=== PATIENT | male | born 1970 | race Caucasian/White ===

== ENCOUNTER 2018-01-20 11:34 | Emergency (ER) | payer OTHER ==
[~2018-01-20] VITALS: Ht 182.9 cm; Wt 97.5 kg
--- NOTE | 2018-01-20 13:49 | ED UPPER/LOWER EXTREMITY COMPL ---
History of Present Illness General Chief Complaint: Upper Extremity Injury Stated Complaint: R ARM INJURY Source: patient Exam Limitations: no limitations Vital Signs & Intake/Output Vital Signs & Intake/Output Vital Signs Date Time Temp Pulse Resp B/P B/P Pulse O2 O2 Flow FiO2 Mean Ox Delivery Rate 01/20 1418 98.3 95 18 148/98 99 Room Air 01/20 1142 98.2 97 20 157/110 99 Room Air ED Intake and Output 01/21 0000 01/20 1200 Intake Total Output Total Balance Patient 215 lb Weight Weight Reported by Patient Measurement Method Allergies Coded Allergies: NO KNOWN ALLERGIES (12/01/14) Reconcile Medications Ibuprofen 800 MG TABLET 1 TAB PO TID PAIN Oxycodone HCl/Acetaminophen (Percocet 5-325 MG Tablet) 5 MG-325 MG TABLET 1-2 TAB PO Q6P PRN PAIN Triage Note: PT TO ED C/O RIGHT ARM PAIN SINCE 1044. PT WAS AT WORK PUTTING AN OVEN INTO A CABINET AND FELT A PULL AND POP TO RIGHT FOREARM. DECLINING MEDS IN TRIAGE. WORKERS COMP FORM FILED. Triage Nurses Notes Reviewed? yes Onset: Abrupt Duration: day(s): HPI: 47-year-old male comes into the emergency room for further evaluation of pain to his right forearm. Patient reports that he was at work lifting cabinets when he felt a pop and pull in his right forearm. He's had significant pain since then. Swelling. Pain shoots down to his wrist area. Comes in for further evaluation. Denies any numbness or tingling. (Layo Alcala) Past History Travel History Traveled to [place] past 21 day No Medical History Any Pertinent Medical History? see below for history Cardiovascular: hypertension Surgical History Surgical History: non-contributory Psychosocial History What is your primary language Albanian Tobacco Use: Current Daily Use Daily Tobacco Use Amount/Type: => 5 Cigarettes daily ETOH Use: occasional use Illicit Drug Use: denies illicit drug use Family History Hx Contributory? No (Layo Alcala) Review of Systems Review of Systems Constitutional: Reports: no symptoms. EENTM: Reports: no symptoms. Respiratory: Reports: no symptoms. Cardiovascular: Reports: no symptoms. Gastrointestinal/Abdominal: Reports: no symptoms. Genitourinary: Reports: no symptoms. Musculoskeletal: Reports: see HPI. Skin: Reports: no symptoms. Neurological/Psychological: Reports: no symptoms. Hematologic/Endocrine: Reports: no symptoms. Immunological: Reports: no symptoms. All Other Systems: Reviewed and Negative (Layo Alcala) Physical Exam Physical Exam General Appearance: well developed/nourished, mild distress Head: atraumatic Eyes: Bilateral: normal appearance. Ears, Nose, Throat: normal ENT inspection, hearing grossly normal Neck: normal inspection Cardiovascular/Respiratory: no respiratory distress Back: normal inspection Elbow Right: soft tissue tenderness over right forearm not very localized to one particular area, pain with pronation and supination, radial pulse 2+, no tenderness over elbow, biceps tendon intact, entry rep strength intact, Neurologic/Tendon: normal sensation, normal motor functions, normal tendon functions, responds to pain, no evidence tendon injury, no pulse deficit Skin: intact, normal color, warm/dry (Layo Alcala) Progress Differential Diagnosis: fracture, sprain, tendon injury, muscle tear Plan of Care: Orders Procedure Date/time Status Durable Medical Equipment 01/20 1226 Active Diagnostic Imaging: Viewed by Me: Radiology Read. Discussed w/RAD: Radiology Read. Radiology Impression: PATIENT: KHRIS VILLEGAS PRESENT AGE: 47 PATIENT ACCOUNT NO: [id number] : 69 LOCATION: [facility] ORDERING PHYSICIAN: Layo MEJIA SERVICE DATE: 01/20/18 EXAM TYPE : RAD - XRY-ELBOW 3 OR MORE VIEWS, R; XRY-FOREARM, RIGHT EXAMINATION: XR ELBOW, RIGHT XR FOREARM, RIGHT CLINICAL INFORMATION: Pain. Assess for any avulsion fracture. COMPARISON: None. TECHNIQUE: AP, left and right oblique and lateral views of the elbow were obtained. AP and lateral views of the right forearm were obtained. FINDINGS: Right elbow: There is normal alignment of the osseous structures. The soft tissues are unremarkable and no joint effusions are demonstrated. Bone mineralization is normal. There are no radiodense foreign bodies. Right forearm: There is normal alignment of the elbow and wrist joints. No fractures are demonstrated. The soft tissues are unremarkable. There are no radiodense foreign bodies. IMPRESSION: 1. There are no fractures or subluxations. 2. There are no joint effusions. DICTATED BY: Dennys Quinones MD DATE /TIME DICTATED:01/20/181339 BIOMASS FACILITATOR:RAD.[email or web address] DATE/TIME TRANSCRIBED: 01/20/18 / 1339 CONFIDENTIAL, DO NOT COPY WITHOUT APPROPRIATE AUTHORIZATION. < Electronically signed in Other Vendor System> SIGNED BY: Dennys Quinones MD [id number] (Layo Alcala) Departure Departure Disposition: HOME OR SELF CARE Condition: Stable Clinical Impression Primary Impression: Muscle tear Secondary Impressions: Soft tissue injury of right forearm Referrals: Vince GALEANO,Gila Monroe MD,Theodora Elizondo (PCP/Family) Additional Instructions: Take ibuprofen and Percocet for pain. Follow-up with orthopedic doctor provided. Return if any concerns worsening symptoms. Please go over all results of today's visit with your primary care doctor. Contact your primary care doctor to let them know you were here in the emergency room. There may be nonspecific findings which may not be related to your visit today here in the emergency room but may require further evaluation and chronic monitoring by your primary care doctor. If you had a laceration today the chance of foreign body always remains. You should follow-up with your primary care doctor for recheck in 3-5 days for a wound check. If you had an x-ray done there is a chance that a fracture could have been missed on initial read and you should follow-up with your primary care doctor for repeat x-rays if symptoms persist. If your blood pressure was elevated here in the emergency room please have rechecked by [facility] primary care doctor within the next 48. If you were prescribed a narcotic here in the emergency room or any type of controlled substances you're not allowed to drive while taking this medication or operate any type of heavy machinery. Narcotics can make you feel lightheaded dizziness nausea and can cause constipation. You may need to picker packer a stool softener. Thank you for choosing [facility] emergency room. Please return to the emergency room immediately if you have any other concerns worsening of symptoms. Departure Forms: Customer Survey General Discharge Information Industrial Accident Report Prescriptions: Current Visit Scripts Oxycodone HCl/Acetaminophen (Percocet 5-325 MG Tablet) 1-2 TAB PO Q6P PRN PAIN #15 TAB Ibuprofen 1 TAB PO TID #60 TAB Comments 01/20/2018 2:46:24 PM Patient clinically looks well. In no apparent distress. Tendon versus soft tissue injury. Patient was referred to orthopedic doctor. Patient may require MRI. High suspicion for tear. (Layo Alcala) PA/[employer]LE [employer]YR[employer]ER Co-Sign Statement Statement: ED Attending supervision documentation- I saw and evaluated the patient. I have also reviewed all the pertinent lab results and diagnostic results. I agree with the findings and the plan of care as documented in the PA's/MAPLE SYRUP MAKER's documentation. x I have reviewed the ED Record and agree with the PA's/MAPLE SYRUP MAKER's documentation. [] Additions or exceptions (if any) to the PAs/MAPLE SYRUP MAKER's note and plan are summarized below: [] (Johnny GALEANO,Arnoldo) Procedures Splinting Location: right forearm Manual Alignment Performed: No Pre-Made Type: SHOULDER IMMOBILIZER Splint Applied By: splint applied by me Pre-Proc Neuro Vasc Exam: normal (Layo Alcala)
[2018-01-20] MEDS ORDERED: PERCOCET 5-3251 EACH PO (14:04)
[2018-01-20] MEDS ORDERED: IBUPROFEN800 M1 PO (14:04)
[2018-01-20 14:18] VITALS: BP 148/98
== END 2018-01-20 14:20 ==
LOC: ERH 11:34
DX: S56.901A Unspecified injury of unspecified muscles, fascia and tendons at forearm level, right arm, initial encounter (principal); X58.XXXA Exposure to other specified factors, initial encounter; Y92.89 Other specified places as the place of occurrence of the external cause; Y93.89 Activity, other specified; I10 Essential (primary) hypertension; F17.210 Nicotine dependence, cigarettes, uncomplicated; F10.10 Alcohol abuse, uncomplicated
CPT/HCPCS: 73080-RT; 73090-RT; 96372; J1885